=== PATIENT | male | born 1990 | race Caucasian/White ===

== ENCOUNTER 2018-07-26 22:26 | Emergency (ER) | payer OTHER ==
[~2018-07-26] VITALS: Wt 129.5 kg
--- NOTE | 2018-07-26 23:53 | ERD ---
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 He has been ongoing for the last day, the patient states that he has been under a lot of stress since his [id number] earlier this week. He smokes tobacco, but denies any other illicit drug use, he has no cardiac history, he has no history of diabetes, he has not had leg swelling, no hemoptysis, no ROS All systems reviewed and are negative except as per history of present illness. Medications Home Meds Active Scripts Lorazepam* (Ativan*) 0.5 Mg Tablet, 0.5 MG PO Q8H PRN for ANXIETY, #5 TAB Prov:ANÍBAL FINLEY MD 07/26/18 Allergies Allergies: Coded Allergies: No Known Allergy (Unverified , 07/26/18) PMhx/Soc Medical and Surgical Hx: pt denies Medical Hx, pt denies Surgical Hx Hx Miscellaneous Medical Probl: No Hx Alcohol Use: Yes (Occasional) Hx Substance Use: No Hx Tobacco Use: Yes Smoking Status: Current some day smoker Physical Exam Vitals Vital Signs Date Temp Pulse Resp B/P (MAP) Pulse Ox O2 O2 Flow FiO2 Time Delivery Rate 07/26/18 98.1 93 19 150/92 100 Room Air 22:46 (111) 07/26/18 98.1 87 19 154/89 100 22:32 (110) Physical Exam Const: No acute distress Head: Atraumatic Eyes: Normal Conjunctiva ENT: Normal External Ears, Nose and Mouth. Neck: Full range of motion. No meningismus. Resp: Clear to auscultation bilaterally Cardio: Regular rate and rhythm, no murmurs Abd: Soft, non tender, non distended. Normal bowel sounds Skin: No petechiae or rashes Back: No midline or flank tenderness Ext: No cyanosis, or edema Neur: Awake and alert Psych: Normal Mood and Affect Procedures/MDM This is a 28-year-old male presents with chest pain. Patient is nontoxic- appearing, appears in no distress, EKG and chest x-ray were unremarkable, I do not suspect acute coronary syndrome, given his age, lack of risk factors, he is PERC negative, discussed findings with patient, he is stable for discharge home. I will give him a short supply of Ativan as needed for anxiety, and advised follow-up with his primary care doctor, at discharge she was in no acute distress. EKG: Rate/Rhythm: Normal Sinus Rhythm QRS, ST, T-waves: No changes consistent w/ acute ischemia Impression: No evidence of ischemia or arrhythmia Chest X-ray 1V Interpreted by me: Soft Tissue: No acute abnormalities Bones: No acute abnormalities Mediastinum/Cardiac Silhouette/Lungs: No acute abnormalities Departure Diagnosis: Primary Impression: Chest pain Chest pain type: unspecified Qualified Codes: R07.9 - Chest pain, unspe cified Condition: Stable Patient Instructions: Chest Pain, Uncertain Cause Additional Instructions: Call your primary care doctor TOMORROW for an appointment during the next 2-3 days.See the doctor sooner or return here if your condition worsens before your appointment time. ANÍBAL FINLEY MD Jul 26, 2018 23:53
[2018-07-26] MEDS ORDERED: LORA-441 PO (23:58)
[2018-07-27 00:01] VITALS: BP 130/81; PULSE 77; RESP 17
== END 2018-07-27 00:01 | disposition home or self-care (01) ==
LOC: E/R 22:26
DX: R07.9 Chest pain, unspecified (principal); F17.210 Nicotine dependence, cigarettes, uncomplicated
CPT/HCPCS: 71045; 93005

== ENCOUNTER 2018-08-04 16:34 | Emergency (ER) | payer OTHER ==
[~2018-08-04] VITALS: Ht 167.6 cm; Wt 123.6 kg
[~2018-08-04 16:34] MED LIST: LORA-441 PO
[2018-08-04 16:40] VITALS: Ht 167.6 cm; Wt 123.6 kg
--- NOTE | 2018-08-04 21:27 | ERD ---
ER Documentation Chief Complaint Chief Complaint Complains of Chest pain since today HPI This is 28-year-old male who is here for chest pain. The patient states that his [id number] 2 weeks ago and he was the one who found him at the house. He said that ever since this time he keeps waking up at night with chest pain hyperventilation sense of impending doom, panic attacks. He says that occasionally it will happen during the day when he is thinking about the or if he stressed out. He does describe it as a pressure and a sense of anxiety and impending doom. His is here and says that when he gets these episodes he looks very scared and in a panic. He has been to this ER on July 26 and another outside ER both diagnosed him with anxiety. He says they agree that it is anxiety but they are here because they want some blood checked ROS All systems reviewed and are negative except as per history of present illness. Medications Home Meds Discontinued Scripts Lorazepam* (Ativan*) 0.5 Mg Tablet, 0.5 MG PO Q8H PRN for ANXIETY, #5 TAB Prov:ANÍBAL FINLEY MD 07/26/18 Allergies Allergies: Coded Allergies: No Known Allergy (Unverified , 08/04/18) PMhx/Soc Medical and Surgical Hx: pt denies Medical Hx, pt denies Surgical Hx Hx Miscellaneous Medical Probl: No Hx Alcohol Use: Yes (Occasional) Hx Substance Use: No Hx Tobacco Use: Yes Smoking Status: Current every day smoker FmHx Family History: No coronary disease Physical Exam Vitals Vital Signs Date Temp Pulse Resp B/P (MAP) Pulse Ox O2 O2 Flow FiO2 Time Delivery Rate 08/04/18 97.8 83 20 158/78 98 16:40 (104) Physical Exam Const: Well-developed, well-nourished Head: Atraumatic, normocephalic Eyes: Normal Conjunctiva, PERRLA, EOMI, normal sclera, no nystagmus ENT: Normal External Ears, Nose and Mouth, moist mucus membranes. Neck: Full range of motion. No meningismus, no lymphadenopathy. Resp: Clear to auscultation bilaterally, no wheezing, rhonchi, rales Cardio: Regular rate and rhythm, no murmurs, S1 S2 present Abd: Soft, non tender x 4, non distended. Normal bowel sounds, no guarding or rebound, no pulsitile abdominal masses or bruits Skin: No petechiae or rashes, no ecchymosis , no maculopapular rash Back: No midline or flank tenderness Ext: No cyanosis, or edema, FROM x 4, normal inspection, neurovascularly intact x 4 Neur: Awake and alert, STR 5/5 x 4, sensation intact x 4, no focal findings, cerebellum intact Psych: Normal Mood and Affect Result Diagram: 08/04/182134 Results 24 hrs Laboratory Tests Test 08/04/18 21:35 Sodium Level 144 mmol/L Potassium Level 3.7 mmol/L Chloride Level 101 mmol/L Carbon Dioxide Level 29 mmol/L Anion Gap 14 Blood Urea Nitrogen 16 mg/dl Creatinine 0.79 mg/dl Est Glomerular Filtrat Rate mL/min > 60 mL/min Glucose Level 110 mg/dl Calcium Level 10.0 mg/dl Troponin I < 0.012 ng/ml Procedures/MDM The patient's EKG: Rate/Rhythm: Normal sinus rhythm with inverted T waves in leads III and F QRS, ST, QT: NORMAL NM, QRS, QT] Impression: Abnormal EKG The patient's troponin is negative. He is having symptoms consistent with anxiety and panic due to the loss of his step father. He says he did not receive the Ativan from his last visit. Departure Diagnosis: Primary Impression: Anxiety reaction Condition: Stable MONICA HERBERT DO Aug 04, 2018 21:27
[2018-08-04] MEDS ORDERED: AMLO5TAB4 PO (22:53)
[2018-08-04] MEDS ORDERED: ALPR0.5T PO (22:53)
[2018-08-04 23:03] VITALS: BP 120/78; PULSE 78; RESP 16
[2018-09-01] MEDS ORDERED: IBUP-1542 PO (04:41)
== END 2018-08-04 23:04 | disposition home or self-care (01) ==
LOC: E/R 16:34
DX: F41.9 Anxiety disorder, unspecified (principal); F17.210 Nicotine dependence, cigarettes, uncomplicated
CPT/HCPCS: 80048; 84484; 93005; Z7502